=== PATIENT | female | born 1960 | race Caucasian/White ===

== ENCOUNTER 2024-03-02 19:19 | Emergency (ER) | payer OTHER ==
[~2024-03-02] VITALS: Ht 154.9 cm; Wt 47.6 kg
[2024-03-02 19:19] VITALS: TEMP 96.9
[2024-03-02 20:24] LABS: BASOPHILS % (AUTO) 0.4 % (0.0-2.0); EOSINOPHILS % (AUTO) 0.9 % (0.0-4.0); HEMATOCRIT 33.9 % (36-48); LYMPHOCYTES # (AUTO) 2.7 K/uL (2.5-16.5); MEAN CORPUSCULAR HEMOGLOBIN 31 pg (27-31); MEAN CORPUSCULAR HGB CONC 32 g/dL (33-37); MEAN CORPUSCULAR VOLUME 94.8 fL (80-94); MONOCYTES # (AUTO) 0.2 K/uL (0.8-1.0); NEUTROPHILS # (AUTO) 1.9 K/uL (1.8-7.7); NEUTROPHILS % (AUTO) 38.7 % (42.2-75.2); PLATELET COUNT (AUTO) 135 K/uL (140-450); RED BLOOD CELL COUNT(AUTO) 3.58 MIL/uL (4.20-5.40); RED CELL DISTRIBUTION WIDTH 13.2 % (11.6-13.7); WHITE BLOOD COUNT (AUTO) 4.8 K/uL (4.8-10.8)
[2024-03-02 20:35] LABS: ANION GAP 22.8 (8-16); CALCIUM 8.1 mg/dL (8.5-10.1); CARBON DIOXIDE 16.2 mmol/L (21-32); CREATININE 1.5 mg/dL (0.6-1.3)
[2024-03-02 20:40] VITALS: PULSE 96; O2SAT 99
[2024-03-02] MEDS: NACL 0.9% 1,000 ML IV ONE (20:40)
[2024-03-02 20:45] LABS: ALANINE AMINOTRANSFERASE 264 U/L (12-78); ALBUMIN 1.9 g/dL (3.4-5.0); ALKALINE PHOSPHATASE 135 U/L (50-136); ASPARTATE AMINOTRANSFERASE 357 U/L (15-37); BILIRUBIN,DIRECT 0.1 mg/dL (0.0-0.3); INR 1.12 (0.8-1.2); PROTHROMBIN TIME 11.7 secs (10.8-13.4); TOTAL BILIRUBIN 0.3 mg/dL (0.0-1.0); TOTAL PROTEIN, SERUM 5.3 g/dL (6.4-8.2)
[2024-03-02 20:47] LABS: PARTIAL THROMBOPLASTIN TIME 57.7 secs (22-35.6)
[2024-03-02 21:26] LABS: AMPHETAMINE, URINE POSITIVE ng/ml (NEG <=1000); BARBITURATE, URINE NEGATIVE ng/ml (NEG <=200); BENZODIAZEPINE, URINE NEGATIVE ng/mL (NEG <=200); CANNABINOID, URINE NEGATIVE ng/mL (NEG <=50); COCAINE, URINE NEGATIVE ng/mL (NEG <=300); OPIATE, URINE NEGATIVE ng/mL (NEG <=2000); PHENCYCLIDINE SCREEN,URINE NEGATIVE ng/mL (NEG <=25)
[2024-03-02] MEDS ORDERED: NOREPINEPHRINE 4 MG/4 ML VIAL IV ONE (21:59)
[2024-03-02] MEDS ORDERED: CODE BLUE PARTICIPANT 1 EA MISC MC ONE (22:00)
[2024-03-02] MEDS: NOREPINEPHRINE 4 MG in DEXTROSE 5% 250 ML IV ONE (22:26)
[2024-03-02 22:33] LABS: APPEARANCE,URINE CLEAR (CLEAR); BILIRUBIN,URINE NEGATIVE (NEGATIVE); BLOOD, URINE 3+ (NEGATIVE); COLOR,URINE YELLOW (YELLOW); LEUKOCYTE ESTERASE ,URINE 2+ (NEGATIVE); NITRITE, URINE POSITIVE (NEGATIVE); PROTEIN,URINE 2+ (NEGATIVE); UGLUCOSE TRACE (NEGATIVE)
[2024-03-02] MEDS: ASPIRIN 325 MG TAB NG ONE (22:36)
[2024-03-02 22:45] LABS: BACTERIA,URINE 10-30 (MOD) /HPF (None Seen); MUCUS,URINE 1+ /LPF (None Seen); SQUAMOUS EPITHELIAL CELL,UR 0-3 (FEW) /LPF (0-3 (FEW))
== END 2024-03-02 23:43 ==
LOC: MED 19:19 → EDBD 19:19 → MED 23:43
DX: I46.9 Cardiac arrest, cause unspecified (principal); D69.6 Thrombocytopenia, unspecified; D64.9 Anemia, unspecified; N17.9 Acute kidney failure, unspecified; E87.6 Hypokalemia; Z79.899 Other long term (current) drug therapy
CPT/HCPCS: 31500; 36415; 70450; 71045; 80048; 80076; 80305; 81001; 83880; 84484; 85025; 85610; 85730; 87086; 87186; 92950; 93005; 96361; 96365; 99291; J3490; J7030